=== PATIENT | male | born 1985 | race Caucasian/White ===

== ENCOUNTER 2016-12-30 08:51 | Emergency (ER) | payer SELFPAY ==
[~2016-12-30 08:51] MED LIST: COZAAR50 MG PO; HCTZ25 MG PO; NITROSTAT0.4 MG PO; PRINIVIL10 MG PO
== END 2016-12-30 09:49 | disposition home or self-care (01) ==
LOC: FER 08:51
DX: R53.83 Other fatigue (principal); I10 Essential (primary) hypertension; R53.1 Weakness; R19.7 Diarrhea, unspecified; Z79.899 Other long term (current) drug therapy
CPT/HCPCS: 99283

== ENCOUNTER 2016-12-30 18:47 | Emergency (ER) | payer SELFPAY | END 2016-12-30 20:33 | disposition left against medical advice (07) | LOC: FER 18:47 | DX: R53.1 Weakness (principal); R53.83 Other fatigue; R53.81 Other malaise; I10 Essential (primary) hypertension; R50.9 Fever, unspecified; R19.7 Diarrhea, unspecified; Z88.0 Allergy status to penicillin; Z88.1 Allergy status to other antibiotic agents; Z79.899 Other long term (current) drug therapy ==

== ENCOUNTER 2017-03-21 14:49 | Emergency (ER) | payer SELFPAY | END 2017-03-21 17:01 | disposition home or self-care (01) | LOC: FER 14:49 | DX: S29.011A Strain of muscle and tendon of front wall of thorax, initial encounter (principal); S46.912A Strain of unspecified muscle, fascia and tendon at shoulder and upper arm level, left arm, initial encounter; I10 Essential (primary) hypertension; F17.290 Nicotine dependence, other tobacco product, uncomplicated; Z88.0 Allergy status to penicillin; Z79.899 Other long term (current) drug therapy; X50.9XXA Other and unspecified overexertion or strenuous movements or postures, initial encounter | CPT/HCPCS: 99283 ==

== ENCOUNTER 2021-01-01 11:39 | Emergency (ER) | payer SELFPAY ==
[2021-01-01 12:33] LABS: BASOPHIL 0.6 % (0-2); EOSINOPHIL 0.5 % (0-5); HCT 49.6 % (42.0-52.0); HGB 16.8 g/dl (13.2-18.0); LYMPHOCYTE 4.5 % (15-48); MCH 31.5 pg (25.0-31.0); MCHC 33.9 g/dL (32.0-36.0); MCV 92.9 fL (78.0-100.0); MONOCYTE 7.7 % (0-12); MPV 13.9 fL (6.0-9.5); NEUTROPHIL 85.6 % (41-80); NRBC 0; PLT 171 K/uL (150-400); RBC 5.34 M/uL (4.70-6.00); RDW 12.5 % (11.5-14.0); WBC 15.4 K/uL (4.0-10.5)
[2021-01-01 12:47] LABS: ALBUMIN 4.5 g/dL (3.4-5.0); BILIRUBIN - TOTAL 2.4 mg/dL (0.2-1.0); BUN/CREAT RATIO (CALC) 13.9 RATIO; CREATININE 1.08 mg/dL (0.67-1.17); GLOBULIN (CALCULATION) 4.4 g/dL; POTASSIUM 4.6 mmol/L (3.5-5.1); TOTAL PROTEIN 8.9 g/dL (6.4-8.2)
[2021-01-01 13:32] LABS: BILIRUBIN NEGATIVE (NEGATIVE); BLOOD NEGATIVE Ery/uL (NEGATIVE); CLARITY CLEAR (CLEAR); COLOR YELLOW (YELLOW); GLUCOSE (U) NORMAL (NORMAL); LEUKOCYTES NEGATIVE Leu/uL (NEGATIVE); NITRITE NEGATIVE (NEGATIVE); PROTEIN NEGATIVE (NEGATIVE); UROBILINOGEN 0.2 mg/dL (0.2-1.0)
[2021-01-01 15:40] LABS: LACTIC ACID 1.2 mmol/L (0.4-1.9)
[2021-01-01] MEDS ORDERED: METRONIDAZOLE500 MG PO (16:38)
[2021-01-01] MEDS ORDERED: NORCO 5-325 TA1 EACH PO (16:38)
[2021-01-01] MEDS ORDERED: CIPRO500 MG PO (16:38)
[2021-01-01] MEDS ORDERED: ZOFRAN4 M1 PO (16:38)
== END 2021-01-01 17:43 | disposition home or self-care (01) ==
LOC: FER 11:39
PROVIDERS: Emergency Medicine; Nurse Practitioner Family
DX: K57.30 Diverticulosis of large intestine without perforation or abscess without bleeding (principal); I10 Essential (primary) hypertension; Z87.442 Personal history of urinary calculi; Z90.49 Acquired absence of other specified parts of digestive tract; Z88.0 Allergy status to penicillin; Z88.5 Allergy status to narcotic agent; Z88.1 Allergy status to other antibiotic agents; Z98.890 Other specified postprocedural states; Z79.899 Other long term (current) drug therapy
CPT/HCPCS: 36415; 80053; 81003; 82150; 83605; 83690; 85025; 87040; J1885; J2405; J7030; Q9967

== ENCOUNTER 2021-10-07 10:00 | Emergency (ER) | payer SELFPAY ==
[~2021-10-07 10:00] MED LIST changes: +CIPRO500 MG PO; +METRONIDAZOLE500 MG PO; +NORCO 5-325 TA1 EACH PO; +ZOFRAN4 M1 PO
[2021-10-07] MEDS ORDERED: NAPROXEN500 MG PO (11:46)
[2021-10-07] MEDS ORDERED: NORCO 5-325 TA1 EACH PO (11:46)
== END 2021-10-07 12:25 | disposition home or self-care (01) ==
LOC: FER 10:00
DX: S62.322A Displaced fracture of shaft of third metacarpal bone, right hand, initial encounter for closed fracture (principal); S62.312A Displaced fracture of base of third metacarpal bone, right hand, initial encounter for closed fracture; S62.334A Displaced fracture of neck of fourth metacarpal bone, right hand, initial encounter for closed fracture; Z88.1 Allergy status to other antibiotic agents; W01.0XXA Fall on same level from slipping, tripping and stumbling without subsequent striking against object, initial encounter; Y93.89 Activity, other specified; Y92.89 Other specified places as the place of occurrence of the external cause; Y99.0 Civilian activity done for income or pay
CPT/HCPCS: 73130